=== PATIENT | female | born 1995 | race Caucasian/White ===

== ENCOUNTER → 2024-06-16 06:19 | Day surgery (SDC) | payer OTHER, SELFPAY | LOC: GI 06:19 | PROVIDERS: ATTENDING PHYSICIAN Internal Medicine | DX: Z12.11 Encounter for screening for malignant neoplasm of colon (principal); K62.89 Other specified diseases of anus and rectum; K58.9 Irritable bowel syndrome, unspecified; D12.5 Benign neoplasm of sigmoid colon; Z80.0 Family history of malignant neoplasm of digestive organs; Z83.710 Family history of adenomatous and serrated polyps | CPT/HCPCS: 45385; 88305 ==